=== PATIENT | female | born 1995 | race Caucasian/White ===

== ENCOUNTER 2017-01-04 14:33 | Emergency (ER) | payer OTHER ==
[~2017-01-04] VITALS: Ht 162.6 cm; Wt 100.0 kg
[2017-01-04 14:46] VITALS: BP 152/79; PULSE 107; RESP 15; O2SAT 99
--- NOTE | 2017-01-04 15:09 | ED.REPORT ---
HPI-Preg Under 20 Weeks Date of Service Jan 04, 2017 ED Provider: Everett Pugh MD Patient is a 21 year old female who is 18 weeks who presents to the ED complaining of abnormal vaginal bleeding onset this morning. She denies pelvic pain, abdominal pain/cramping or leg swelling. The patient reports that she noticed a small amount of light colored bleeding after she had intercourse this morning and noticed more bright red bleeding a few hours later. She denies anything different during sex including rough sex or instruments. The patient reports that the bleeding is much less than a normal period. Nursing Notes Stated Complaint: 17 WKS & BLEEDING Chief Complaint: & Delivery Nursing Notes Reviewed: Yes Allergies: Coded Allergies: No Known Allergies (Unverified , 01/04/17) General Time Seen by Provider: 15:25 Chief Complaint Vaginal bleeding Context: : Known 1st trim (18 weeks) Hx Obtained From: Patient Arrived By: Walk-in Onset Occurred: 46 - 59 minutes ago Symptom Duration: Since onset Severity: Current: No pain currently Similar Sx Previous: No Past Medical History Past Medical History (18 weeks as of 01/05/17) Rh negative Smoking History Never Smoker Social History Alcohol Use: Denies alcohol use Drug Use: Denies drug use Other Social History: Good social support Ambulatory Status Independent Review of Systems Constitutional: Denies: Chills, Fever Respiratory: Denies: Non-productive cough, Shortness of breath GI: Denies: Abdominal pain Female: Reports: , Vaginal bleeding - abnl, Denies: Pelvic pain Musculoskeletal: Denies: Extremity swelling Skin: Denies Itching, Denies Rash Complete sys rev & neg: except as marked. Physical Exam Initial Vital Signs Vital Signs (First) Date Time Temp Pulse Resp B/P Pulse Ox O2 Delivery O2 Flow Rate FiO2 01/04/17 14:46 36.4 107 15 152/79 99 Room Air Initial VS: Reviewed General/Constitutional: Awake, Alert, No acute distress Abdomen: Atraumatic, Soft, Non-tender Female Genitourinary: Exam deferred : FHT present by U/S, movement present Respiratory / Chest: Atraumatic, Breath sounds NL, Breath sounds = bilat, No respiratory distress Cardiovascular: Heart rate NL, Regular rhythm, Heart sounds NL Neurologic: Oriented X3, Speech NL Head / Eyes: Atraumatic, Normocephalic, PERRL, EOMI Lower Extremity / Pelvis / MS: Atraumatic, No swelling Skin: Atraumatic, Color NL, No rash, Warm, Dry Psychiatric: Affect NL, Mood NL Interpretation & Diagnostics Interpretation & Diagnostics: Bedside ultrasound: adequate amniotic fluid spontaneous movement, heart rate 140 posteriorly placed placenta Re-Eval/Medical Decision Re-Evaluation/Progress : Time of Eval: 15:58 Re-Evaluation/Progress Note: Discussed plan for discharge. Patient understands and agrees to plan. All questions were addressed. Counseled Regarding: Diagnosis, Lab results, Need for follow-up, When/why to return to ED Discharge & Departure Primary Impression: Vaginal bleeding before 22 weeks gestation Disposition: Home Discharge Condition All VS Reviewed: Yes Condition: Stable Patient Instructions: Threatened Miscarriage (ED) Additional Instructions: The ultrasound showed good movement and heart rate. There is always a potential for miscarriage but your risk is very minimal at this point. Do not have sex or put anything into your vagina for the next 48 hours until the bleeding has stopped. You are Rh negative and your blood type is A- Follow up with your primary care physician and OBGYN this week. Follow up with the OB clinic regarding the urine sample. Return to the emergency department if you develop any new or concerning symptoms including increasing bleeding, feeling faint, abdominal cramping or any worse or concerning symptoms. You received a RhoGAM shot today. Referrals: Trinh Fisher MD (PCP) Clare Attestation Portions of this note were transcribed by Mary Bowen. I, Dr. Pugh personally performed the history, physical exam and medical decision-making; I reviewed and confirmed the accuracy of the information in the transcribed note. Signed by: Clare Garcia, 01/04/17. copies to: Trinh Fisher MD, Kirk H MD Jan 04, 2017 15:08 Tiffanie Bowen Jan 04, 2017 15:29
[2017-01-04 16:24] VITALS: BP 135/88; PULSE 90; RESP 20; O2SAT 98
== END 2017-01-04 16:27 | disposition home or self-care (01) ==
LOC: SED 14:33
DX: O20.9 Hemorrhage in early pregnancy, unspecified (principal); Z3A.18 18 weeks gestation of pregnancy
CPT/HCPCS: 76815; 96372; 99284; J2790